=== PATIENT | female | born 1960 | race Caucasian/White ===

== ENCOUNTER 2018-08-26 11:28 | Inpatient (IN) | payer OTHER ==
[~2018-08-26] VITALS: Ht 157.5 cm; Wt 62.6 kg
[2018-08-26 11:29] VITALS: BP 112/82
--- NOTE | 2018-08-26 11:29 | NUR ---
PT TO BED 4. PLACED ON MONITOR, DRESSED IN GOWN.
--- NOTE | 2018-08-26 11:35 | NUR ---
EKG IN PROGRESS
--- NOTE | 2018-08-26 11:42 | NUR ---
PATIENT PRESENTS TO ED WITH C/O STERNAL CHEST PAIN SINCE YESTERDAY, DENIES SOB, N/V/D, DENIES MEDICAL HX. SKIN IS PINK/WARM/DRY; AAOX4 WITH EVEN AND STEADY GAIT; LUNGS CLEAR BL; HR EVEN AND REGULAR;PATIENT STATES PAIN OF 8/10 AT THIS TIME; VSS; PATIENT POSITIONED FOR COMFORT; HOB ELEVATED; BEDRAILS UP X2; BED DOWN. ER MD MADE AWARE OF PT STATUS.
--- NOTE | 2018-08-26 11:46 | NUR ---
Patient being evaluated by physician at bedside.
[2018-08-26 12:03] LABS: BASOPHILS # (AUTO) 0.1 K/uL (0.00-0.22); BASOPHILS % (AUTO) 0.7 % (0.0-2.0); EOSINOPHILS # (AUTO) 0.1 K/uL (0-0.4); EOSINOPHILS % (AUTO) 0.5 % (0.0-4.0); HEMATOCRIT 38.4 % (36-48); HEMOGLOBIN 12.8 g/dL (12.0-16.0); LYMPHOCYTES # (AUTO) 2.1 K/uL (2.5-16.5); LYMPHOCYTES % (AUTO) 18.1 % (20.5-51.1); MEAN CORPUSCULAR HEMOGLOBIN 29 pg (27-31); MEAN CORPUSCULAR HGB CONC 33 g/dL (33-37); MEAN CORPUSCULAR VOLUME 86.1 fL (80-94); MONOCYTES # (AUTO) 0.9 K/uL (0.8-1.0); MONOCYTES % (AUTO) 7.9 % (1.7-9.3); NEUTROPHILS # (AUTO) 8.5 K/uL (1.8-7.7); NEUTROPHILS % (AUTO) 72.8 % (42.2-75.2); PLATELET COUNT (AUTO) 311 K/uL (140-450); RED BLOOD CELL COUNT(AUTO) 4.45 MIL/uL (4.20-5.40); RED CELL DISTRIBUTION WIDTH 14.2 % (11.6-13.7); WHITE BLOOD COUNT (AUTO) 11.7 K/uL (4.8-10.8)
[2018-08-26 12:28] LABS: ANION GAP 15.5 (8-16); CARBON DIOXIDE 24.9 mmol/L (21-32); CREATININE 0.9 mg/dL (0.6-1.3); POTASSIUM 3.4 mmol/L (3.5-5.1)
--- NOTE | 2018-08-26 12:30 | NUR ---
PT DENIES CHEST PAIN AT THIS TIME, VSS, RESTING IN BED.
[2018-08-26 12:45] LABS: ALBUMIN 3.7 g/dL (3.4-5.0); TOTAL BILIRUBIN 0.5 mg/dL (0.0-1.0)
[2018-08-26] MEDS ORDERED: ASPIRIN 325 MG TAB PO ONE (12:55)
[2018-08-26] MEDS ORDERED: NITROGLYCERIN 0.4 MG TAB SL ONE (12:55)
[2018-08-26] MEDS ORDERED: HEPARIN PER PHARMACY MC PRN (13:00)
[2018-08-26] MEDS ORDERED: hePARIN / DEXT 5% PREMIX 250 ML IV SCH (13:00)
[2018-08-26] MEDS ORDERED: ONDANSETRON 4 MG/2 ML VIAL IVP PRN (13:05)
[2018-08-26] MEDS ORDERED: ACETAMINOPHEN 325 MG TAB PO PRN (13:05)
[2018-08-26] MEDS ORDERED: MORPHINE SULFATE 4 MG/ML SYR IVP PRN (13:05)
[2018-08-26] MEDS ORDERED: ALBUTEROL 0.083% 2.5 MG/3 ML NEBU IH PRN (13:05)
[2018-08-26] MEDS ORDERED: HYDROcodone/APAP 5/325 MG 1 TAB TAB PO PRN (13:05)
[2018-08-26] MEDS ORDERED: POTASSIUM CHLORIDE 10 MEQ TABER PO SCH (13:30)
[2018-08-26] MEDS ORDERED: ATORVASTATIN 20 MG TAB PO SCH (13:30)
[2018-08-26] MEDS ORDERED: NICOTINE TRANSD SYS 14 MG/24 HR PATCH TD SCH (13:30)
[2018-08-26 13:35] VITALS: BP 106/63
--- NOTE | 2018-08-26 13:35 | NUR ---
RECEIVED REPORT FROM ED NURSE. PT TRANSFERRED TO [facility] BED WITH STEADY GAIT. PT HAS NO C/O PAIN OR CHEST PAIN AT THIS TIME. AAOX4, COOPERATIVE. RESPIRATIONS EVEN AND UNLABORED ON RA. IV ON LT FA 22 GA ON SALINE LOCK, PATENT AND FLUSHING WITHOUT RESISTANCE. ACTIVE BOWEL SOUNDS, LBM 7/9. NO EDEMA NOTED TO EXTREMITIES. SKIN IS INTACT, WARM TO TOUCH. REVIEWED POC WITH PT, PT VERBALIZED UNDERSTANDING. WILL CONTINUE TO MONITOR.
[2018-08-26 13:38] LABS: PROTHROMBIN TIME 10.1 secs (10.8-13.4)
--- NOTE | 2018-08-26 13:42 | NUR ---
Patient will be admitted to care of dr barajas. Admited to tele. Will go to room 121-b. Belongings list completed. Report to radha head.
[2018-08-26] MEDS: hePARIN / DEXT 5% PREMIX 250 ML IV SCH (15:19)
--- NOTE | 2018-08-26 15:20 | NUR ---
GIVEN HEPARIN BOLUS AND STARTED HEPARIN DRIP PER ORDERS. EXPLAINED RISKS AND BENEFITS TO PT, PT VERBALIZED UNDERSTANDING. WILL CONTINUE TO MONITOR FOR S/S OF BLEEDING.
[2018-08-26 16:00] VITALS: BP 90/54
--- NOTE | 2018-08-26 18:40 | NUR ---
FRIEND VIKTORIYA AND DAUGHTER AT BEDSIDE. CLARIFIED POC AND ANSWERED QUESTIONS. PT IS IN NO S/S OF DISTRESS. WILL CONTINUE TO MONIBOR.
--- NOTE | 2018-08-26 19:20 | NUR ---
RECEIVED ENDORSEMENT FORM SONAL TORRES DAYSHIFT NURSE AT BEDSIDE FOR CONTINUITY OF CARE, PT IN STABLE CONDITION. PT HAS A 22 G ON LEFT FOREARM INTACT AND ASYMPTOMATIC. PT IS RUNNING HEPARIN GTT VIA IV ON LEFT F/A. OTHERWISE SKIN INTACT, AND PT IS AOX4 WITH NO C/O VOICED.
--- NOTE | 2018-08-26 19:20 | NUR ---
ENDORSED PT TO HORSER UP NURSE. PT HAS NO SIGNS OF DISTRESS AT THIS TIME.
[2018-08-26 20:00] VITALS: BP 113/58
[2018-08-26] MEDS: CARVEDILOL 6.25 MG TAB PO SCH (20:22)
--- NOTE | 2018-08-26 20:30 | NUR ---
PT IN BED V/S FOLLOWS T 97.1 P 81 R 18 B/P 113/58 02 97% ON ROOM AIR. LAB CALLED AND REPORTED A CRITICAL FOR TROPONIN LEVEL WHICH IS 0.185. MD NOT NOTIFIED BECAUSE TROPONIN LEVEL IS TRENDING DOWN. PT HAS NO C/O OF PAIN OR DISTRESS NOTED. HEPARIN GTT CONTINUE TO RUN ORDERED AT 700 UNITS.
--- NOTE | 2018-08-26 21:00 | NUR ---
PT GIVEN DUE COREG. NO C/O VOICED BY PT. BED LOW AND SIDE RAILS UP X2. PT HAS CALL BEAVERS IN REACH.
--- NOTE | 2018-08-26 22:00 | NUR ---
NEW APTT LEVEL IS 47.4 WHICH IS IN THERAPEUTIC RANGE, NEW APPT BLOOD DRAW ORDERED FOR 0315AM. PT SLEEPING IN BED, NO S/S OF PAIN OR DISTRESS NOTED.
[2018-08-27] VITALS: BP 113/64
--- NOTE | 2018-08-27 | NUR ---
PT IN BED SLEEPING BUT AROUSABLE TO NAME AND LIGHT TOUCH. V/S FOLLOWS T 97.0 P 76 R 18 B/P 113/64 02 98% ON ROOM AIR. NO C/O VOICED BY RESIDENT HEPARIN GTT RUNNING AT 700 UNITS ORDERED. IV SITE ON LEFT F/A INTACT AND ASYMPTOMATIC. BED LOW SIDE RAILS UP X2, NO C/O VOICED BY PT AND CALL BEAVERS IN REACH.
--- NOTE | 2018-08-27 02:00 | NUR ---
PT IN BED SLEEPING NO S/S OF PAIN OR DISTRESS NOTED.
[2018-08-27 03:22] LABS: BASOPHILS # (AUTO) 0.1 K/uL (0.00-0.22); EOSINOPHILS # (AUTO) 0.3 K/uL (0-0.4); HEMATOCRIT 37.5 % (36-48); HEMOGLOBIN 12.4 g/dL (12.0-16.0); LYMPHOCYTES # (AUTO) 3.1 K/uL (2.5-16.5); LYMPHOCYTES % (AUTO) 32.6 % (20.5-51.1); MEAN CORPUSCULAR HEMOGLOBIN 29 pg (27-31); MEAN CORPUSCULAR HGB CONC 33 g/dL (33-37); MEAN CORPUSCULAR VOLUME 87.3 fL (80-94); MONOCYTES # (AUTO) 0.7 K/uL (0.8-1.0); MONOCYTES % (AUTO) 7.6 % (1.7-9.3); NEUTROPHILS # (AUTO) 5.2 K/uL (1.8-7.7); NEUTROPHILS % (AUTO) 55.8 % (42.2-75.2); PLATELET COUNT (AUTO) 297 K/uL (140-450); WHITE BLOOD COUNT (AUTO) 9.3 K/uL (4.8-10.8)
[2018-08-27 04:00] VITALS: BP 131/75
[2018-08-27 04:00] LABS: ANION GAP 14.6 (8-16); CARBON DIOXIDE 23.4 mmol/L (21-32); CREATININE 0.8 mg/dL (0.6-1.3)
--- NOTE | 2018-08-27 04:00 | NUR ---
LAB DRAW CAME BACK APTT LEVEL IS 45.9 FOLLOWED PROTOCOL, GAVE PT 1700 BOLUS HEPARIN AND INCREASED RATE 100UNITS TO 800U PER HR. PT TROPONIN LEVEL CAME BACK STILL A CRITICAL LEVEL OF 0.131 BUT TRENDING DOWNWARD. PT C/O 5/10 CHEST HEAVINESS , GIVEN 1 TAB NORCO PO/PRN. WILL MONITOR FOR EFFECT.
[2018-08-27 04:07] LABS: PHOSPHORUS 3.8 mg/dL (2.5-4.9)
[2018-08-27 04:12] LABS: CHOL/HDL RATIO 5.1 (1-4.5)
[2018-08-27] MEDS: hePARIN / DEXT 5% PREMIX 250 ML IV SCH (04:42)
--- NOTE | 2018-08-27 07:25 | NUR ---
RECEIVED REPORT FROM FISH TECHNOLOGIST NURSE. PT SLEEPING IN BED, AROUSABLE TO NAME, AOX4. RESPIRATIONS EVEN AND UNLABORED ON RA. IV ON LT FA 22 GA RUNNING HEPARIN PER ORDER. BOWEL SOUNDS ACTIVE, LBM 7/10. SKIN IS INTACT, WARM TO TOUCH. NO EDEMA TO EXTREMITIES NOTED AT THIS TIME. REVIEWED POC WITH PT, PT VERBALIZED UNDERSTANDING. CALL LIGHT WITHIN REACH. WILL CONTINUE TO MONITOR.
--- NOTE | 2018-08-27 07:30 | NUR ---
REPORT GIVEN TO SONAL TORRES DAYSHIFT AT BEDSIDE FOR CONTINUITY OF CARE, PT IN STABLE CONDITION.
[2018-08-27 08:00] VITALS: BP 95/52
--- NOTE | 2018-08-27 08:16 | NUR ---
PATIENT HAS BEEN SCREENED AND CATEGORIZED MODERATE NUTRITION RISK. PATIENT WILL BE SEEN WITHIN 3-5 DAYS OF ADMISSION. 08/29/18ARINA KAT RD
[2018-08-27] MEDS ORDERED: ATORVASTATIN 20 MG TAB PO SCH (09:00)
[2018-08-27] MEDS ORDERED: ASPIRIN 325 MG TAB PO SCH (09:00)
[2018-08-27] MEDS ORDERED: NICOTINE TRANSD SYS 14 MG/24 HR PATCH TD SCH (09:00)
[2018-08-27] MEDS: CARVEDILOL 6.25 MG TAB PO SCH (09:00)
--- NOTE | 2018-08-27 09:45 | NUR ---
CARVEDILOL HELD AT THIS TIME. BP 88/55. WILL REASSESS AT A LATER TIME, AND WILL CONTINUE TO MONITOR FOR SIGNS OF BLEEDING.
--- NOTE | 2018-08-27 10:30 | NUR ---
PT NOTIFIED REGARDING PLAN TO TRANSFER TO [facility] FOR CARDIAC CATHETERIZATION. DR. JARAMILLO AT BEDSIDE. PT PLACED ON NPO EXCEPT MEDS. PT IS AGREEABLE AND VERBALIZED UNDERSTANDING.
[2018-08-27] MEDS ORDERED: NICO14TD30 TD (11:02)
[2018-08-27] MEDS ORDERED: ACET-9525 PO (11:02)
[2018-08-27] MEDS ORDERED: ATOR20TA40 PO (11:02)
[2018-08-27] MEDS ORDERED: ACET-1182 PO (11:02)
[2018-08-27] MEDS ORDERED: PRON IH (11:02)
[2018-08-27] MEDS ORDERED: MORP4SOL10 IVP (11:02)
[2018-08-27] MEDS ORDERED: ASPI-1205 PO (11:02)
[2018-08-27] MEDS ORDERED: ONDA2SOL45 IVP (11:02)
[2018-08-27] MEDS ORDERED: CARV6.252 PO (11:02)
--- NOTE | 2018-08-27 11:20 | NUR ---
CALLED [facility] DIRECT SPOKE WITH SAIRA REGARDING THE AUTHORIZATION. PER SAIRA AUTH # FOR TRANSPORT [id number] AND FOR [employer] AUTH # [id number] CALLED [employer] SPOKE WITH DIANE PAZ PROVIDE THE AUTH # , ARRANGED TRANSPORT WITH [facility] TEACHER TIME 1400 FOR [facility] . NOTIFIED SONAL RN # TO GIVE REPORT [phone].
[2018-08-27 12:00] VITALS: BP 113/56
--- NOTE | 2018-08-27 12:00 | NUR ---
NO C/O PAIN AT THIS TIME. RESPIRATIONS EVEN AND UNLABORED ON RA.
--- NOTE | 2018-08-27 13:13 | NUR ---
GIVEN REPORT TO [facility] NURSE [place] AT . REPORTED LABS AND LATEST MEDICATIONS RECEIVED. ALL QUESTIONS ANSWERED, NURSE VERBALIZED UNDERSTANDING OF PT CONDITION. PT IS IN STABLE CONDITION AT THIS TIME.
--- NOTE | 2018-08-27 14:30 | NUR ---
PT GIVEN DISCHARGE INSTRUCTIONS. AWARE THAT SHE WILL BE TRANSFERRED TO [facility] FOR CARDIAC CATH PROCEDURE. ALL PAPERWORK SIGNED, AND QUESTIONS ANSWERED. ALL BELONGINGS IN PT POSSESSION. TRANSFERRED OUT OF UNIT VIA GURNEY WITH EMR PERSONNEL ASSISTANCE. TELE MONITOR REMOVED. HEPARIN STOPPED, IV ON HEP LOCK. PATIENT IS IN STABLE CONDITION AT THIS TIME.
== END 2018-08-27 14:30 | disposition short-term general hospital (02) | DRG 190 ==
LOC: MED 11:28 → MTU 13:12
PROVIDERS: ADMIT Internal Medicine Pulmonary Disease; ATTEND Internal Medicine Pulmonary Disease
DX: I21.4 Non-ST elevation (NSTEMI) myocardial infarction (principal); E78.5 Hyperlipidemia, unspecified; E87.6 Hypokalemia; F17.210 Nicotine dependence, cigarettes, uncomplicated; Z79.899 Other long term (current) drug therapy; I20.8 Other forms of angina pectoris
CPT/HCPCS: 36415; 71045; 80048; 80053; 83036; 83735; 84100; 84484; 85025; 85610; 85730; 87081; 93005; 99285; J1644; Q0092

== ENCOUNTER 2019-11-27 16:12 | Emergency (ER) | payer OTHER ==
[~2019-11-27] VITALS: Ht 162.6 cm; Wt 67.6 kg
[~2019-11-27 16:12] MED LIST: ACET-1182 PO; ACET-9525 PO; ASPI-1205 PO; ATOR20TA40 PO; CARV6.252 PO; MORP4SOL10 IVP; NICO14TD30 TD; ONDA2SOL45 IVP; PRON IH
[2019-11-27 16:22] VITALS: BP 169/89
--- NOTE | 2019-11-27 16:49 | NUR ---
PATIENT PRESENTS TO ED WITH LEFT SIDED NECK PAIN X ABOUT 2 MONTHS, PAIN WORSENING AND ACCOMPANIED BY HEADACHE FOR THE PAST 2 DAYS. DENIES N/V/D; SKIN IS PINK/WARM/DRY; AAOX4 WITH EVEN AND STEADY GAIT; LUNGS CLEAR BL; HR EVEN AND REGULAR; PT DENIES ANY FEVER, CP, SOB, OR COUGH AT THIS TIME; PATIENT STATES PAIN OF 9/10 AT THIS TIME; VSS; PATIENT POSITIONED FOR COMFORT; HOB ELEVATED; BEDRAILS UP X1; BED DOWN. ER MD MADE AWARE OF PT STATUS.
--- NOTE | 2019-11-27 17:00 | NUR ---
PT IS BEING TAKEN TO XRAY VIA .
--- NOTE | 2019-11-27 17:15 | NUR ---
PT WAS TAKEN BACK FROM XRAY SCAN VIA WC. COVID SWAB OBTAINED AND SENT TO THE LAB.
[2019-11-27 18:40] VITALS: BP 145/85
--- NOTE | 2019-11-27 18:40 | NUR ---
Patient discharged with v/s stable. Written and verbal after care instructions given and explained. Patient alert, oriented and verbalized understanding of instructions. Ambulatory with steady gait. All questions addressed prior to discharge. ID band removed. Patient advised to follow up with PMD. Rx of Valium given. Patient educated on indication of medication including possible reaction and side effects. Opportunity to ask questions provided and answered.
== END 2019-11-27 18:40 | disposition home or self-care (01) ==
LOC: MED 16:12
DX: S13.9XXA Sprain of joints and ligaments of unspecified parts of neck, initial encounter (principal); E78.5 Hyperlipidemia, unspecified; F17.210 Nicotine dependence, cigarettes, uncomplicated; I10 Essential (primary) hypertension; I51.89 Other ill-defined heart diseases; Z20.828 Contact with and (suspected) exposure to other viral communicable diseases; Z79.899 Other long term (current) drug therapy; X58.XXXA Exposure to other specified factors, initial encounter; Y93.89 Activity, other specified; Y92.89 Other specified places as the place of occurrence of the external cause; Y99.8 Other external cause status
CPT/HCPCS: 72050; 99284; U0003

== ENCOUNTER 2020-03-05 12:29 | Emergency (ER) | payer OTHER ==
[~2020-03-05] VITALS: Ht 157.5 cm; Wt 66.2 kg
[2020-03-05 12:35] VITALS: BP 160/91
--- NOTE | 2020-03-05 12:37 | NUR ---
Patient in tent for covid precautions
--- NOTE | 2020-03-05 13:07 | NUR ---
59 Y/O FEMALE C/O COUGH + BODY ACHES X2 DAYS. DENIES ANY SOB. NO RESP DISTRESS NOTED AT THIS TIME. DENIES N/V. LUNG SOUNDS CLEAR TO BILAT LOBES. SKIN COOL/DRY/INTACT. PMH: CARDIAC STENT NO PMH
--- NOTE | 2020-03-05 13:38 | NUR ---
PT COVID SWABBED AND SENT TO LAB
[2020-03-05] MEDS ORDERED: ALBUTEROL SULFATE/IPRATROPIU 3 ML SOL IH ONE (13:45)
[2020-03-05 15:02] VITALS: BP 157/90
--- NOTE | 2020-03-05 15:02 | NUR ---
Patient discharged with v/s stable. Written and verbal after care instructions given and explained. Patient alert, oriented and verbalized understanding of instructions. Ambulatory with steady gait. All questions addressed prior to discharge. ID band removed. Patient advised to follow up with PMD. Rx of ALBUTEROL, AZITHROMYCIN, PREDNISONE, ATROVENT given. Patient educated on indication of medication including possible reaction and side effects. Opportunity to ask questions provided and answered.
== END 2020-03-05 15:02 | disposition home or self-care (01) ==
LOC: MED 12:29
DX: J02.9 Acute pharyngitis, unspecified (principal); I11.9 Hypertensive heart disease without heart failure; J44.9 Chronic obstructive pulmonary disease, unspecified; Z79.899 Other long term (current) drug therapy; Z20.828 Contact with and (suspected) exposure to other viral communicable diseases
CPT/HCPCS: 71045; 94640; 99284

== ENCOUNTER 2020-09-22 12:29 | Emergency (ER) | payer OTHER, SELFPAY ==
[~2020-09-22] VITALS: Ht 157.5 cm; Wt 64.9 kg
[2020-09-22 12:36] VITALS: BP 169/100
[2020-09-22] MEDS ORDERED: NITROGLYCERIN 0.4 MG TAB SL ONE (13:05)
[2020-09-22] MEDS ORDERED: ASPIRIN 325 MG TAB PO ONE (13:05)
--- NOTE | 2020-09-22 13:07 | NUR ---
PT AMBULATED TO BED 11
--- NOTE | 2020-09-22 13:12 | NUR ---
RAD AT BEDSIDE
--- NOTE | 2020-09-22 13:40 | NUR ---
20 G IV ESTABLISHED TO R AC. BLOOD SAMPLES COLLECTED VIA IV AND AND GIVEN TO CELLAR PACKER.
--- NOTE | 2020-09-22 13:45 | NUR ---
PT STATES SHE IS NO LONGER IN PAIN AFTER X3 NITRO TABLETS. DR ALEMAN MADE AWARE
[2020-09-22 14:11] LABS: BASOPHILS # (AUTO) 0.1 K/uL (0.00-0.22); BASOPHILS % (AUTO) 1.2 % (0.0-2.0); EOSINOPHILS # (AUTO) 0.2 K/uL (0-0.4); EOSINOPHILS % (AUTO) 2.3 % (0.0-4.0); HEMOGLOBIN 12.8 g/dL (12.0-16.0); LYMPHOCYTES # (AUTO) 2.9 K/uL (2.5-16.5); MEAN CORPUSCULAR HEMOGLOBIN 29 pg (27-31); MEAN CORPUSCULAR HGB CONC 34 g/dL (33-37); MEAN CORPUSCULAR VOLUME 86.9 fL (80-94); MONOCYTES # (AUTO) 0.8 K/uL (0.8-1.0); MONOCYTES % (AUTO) 7.2 % (1.7-9.3); NEUTROPHILS # (AUTO) 6.7 K/uL (1.8-7.7); NEUTROPHILS % (AUTO) 62.3 % (42.2-75.2); PLATELET COUNT (AUTO) 302 K/uL (140-450); RED BLOOD CELL COUNT(AUTO) 4.37 MIL/uL (4.20-5.40); RED CELL DISTRIBUTION WIDTH 13.8 % (11.6-13.7); WHITE BLOOD COUNT (AUTO) 10.7 K/uL (4.8-10.8)
[2020-09-22 14:21] LABS: ALBUMIN 3.7 g/dL (3.4-5.0); ANION GAP 12.7 (8-16); CARBON DIOXIDE 26.7 mmol/L (21-32); POTASSIUM 3.4 mmol/L (3.5-5.1); TOTAL BILIRUBIN 0.4 mg/dL (0.0-1.0)
--- NOTE | 2020-09-22 15:30 | NUR ---
PT RESTING IN BED WITH EVEN AND UNLABORED RESPIRATIONS. PT ON TRIM ATTACHER, VSS. WILL CONTINUE TO MONITOR
--- NOTE | 2020-09-22 16:00 | NUR ---
MALACHI ASH SAMPLE COLLECTED AND WALKED TO LAB
[2020-09-22] MEDS ORDERED: MAG SULF 2000 MG/WATER PREMIX 50 ML IV PRN (16:55)
[2020-09-22] MEDS ORDERED: ACETAMINOPHEN 325 MG TAB PO PRN (16:55)
[2020-09-22] MEDS ORDERED: MORPHINE SULFATE 4 MG/ML SYR IVP PRN (16:55)
[2020-09-22] MEDS ORDERED: KCL 20 MEQ/WATER INJ PREMIX 200 ML IV PRN (16:55)
[2020-09-22] MEDS ORDERED: MAGNESIUM OXIDE 400 MG TAB PO PRN (16:55)
[2020-09-22] MEDS ORDERED: HYDROcodone/APAP 5/325 MG 1 TAB TAB PO PRN (16:55)
[2020-09-22] MEDS ORDERED: POTASSIUM CHLORIDE 10 MEQ TABER PO PRN (16:55)
[2020-09-22] MEDS ORDERED: ONDANSETRON 4 MG/2 ML VIAL IVP PRN (16:55)
--- NOTE | 2020-09-22 17:30 | NUR ---
PT DENIES PAIN AT THIS TIME. PT LAYING IN BED WITH EVEN AND UNLABORED RESPIRATIONS. VSS. WILL CONTINUE TO MONITOR
[2020-09-22] MEDS ORDERED: ASPI-1822 PO (18:05)
[2020-09-22] MEDS ORDERED: ATOR40TA PO (18:05)
[2020-09-22] MEDS ORDERED: METO25TA PO (18:05)
[2020-09-22] MEDS ORDERED: LOSA100T1 PO (18:05)
--- NOTE | 2020-09-22 19:01 | NUR ---
PT GIVEN DINNER TRAY
--- NOTE | 2020-09-22 19:14 | NUR ---
Rceived report from BRIAN Michelle for continuity of care
--- NOTE | 2020-09-22 19:15 | NUR ---
REPORT GIVEN TO IVAN RN, TRANSFER OF CARE AT THIS TIME
--- NOTE | 2020-09-22 19:36 | NUR ---
Patient appears to be resting comfortably in bed-- Semi fowlers. Vital Signs within normal limits. Respirations even and unlabored. AAOx4. Safety measures in place, placed on the monitor. Will continue to monitor patient
--- NOTE | 2020-09-22 21:35 | NUR ---
Patient appears to be resting comfortably in bed-- low fowlers. Patient does not complain of Vital Signs within normal limits. Respirations even and unlabored. AAOx4. Provided patient a blanket and pillow. Safety measures in place, placed on the monitor. Will continue to monitor patient.
--- NOTE | 2020-09-23 00:58 | NUR ---
PATIENT AMBULATED TO THE BATHROOM
--- NOTE | 2020-09-23 02:22 | NUR ---
Patient appears to be resting comfortably in bed. Vital Signs within normal limits. Respirations even and unlabored. Safety measures in place. Will continue to monitor.
--- NOTE | 2020-09-23 05:23 | NUR ---
Patient appears to be resting comfortably in bed. Vital Signs within normal limits. Respirations even and unlabored. Safety measures in place. Will continue to monitor.
--- NOTE | 2020-09-23 06:42 | NUR ---
Patient appears to be resting comfortably in bed. Vital Signs within normal limits. Respirations even and unlabored. Safety measures in place. Will continue to monitor.
--- NOTE | 2020-09-23 07:19 | NUR ---
Pt report given to Marilyn TORRES. Transfer of care at this time.
[2020-09-23 07:39] LABS: BASOPHILS # (AUTO) 0.1 K/uL (0.00-0.22); BASOPHILS % (AUTO) 0.7 % (0.0-2.0); EOSINOPHILS # (AUTO) 0.3 K/uL (0-0.4); EOSINOPHILS % (AUTO) 4.2 % (0.0-4.0); HEMOGLOBIN 13.5 g/dL (12.0-16.0); LYMPHOCYTES # (AUTO) 1.9 K/uL (2.5-16.5); LYMPHOCYTES % (AUTO) 23.4 % (20.5-51.1); MEAN CORPUSCULAR HEMOGLOBIN 29 pg (27-31); MEAN CORPUSCULAR HGB CONC 33 g/dL (33-37); MEAN CORPUSCULAR VOLUME 88.3 fL (80-94); MONOCYTES # (AUTO) 0.6 K/uL (0.8-1.0); MONOCYTES % (AUTO) 7.5 % (1.7-9.3); NEUTROPHILS # (AUTO) 5.3 K/uL (1.8-7.7); NEUTROPHILS % (AUTO) 64.2 % (42.2-75.2); PLATELET COUNT (AUTO) 304 K/uL (140-450); RED BLOOD CELL COUNT(AUTO) 4.65 MIL/uL (4.20-5.40); RED CELL DISTRIBUTION WIDTH 13.9 % (11.6-13.7); WHITE BLOOD COUNT (AUTO) 8.3 K/uL (4.8-10.8)
[2020-09-23 07:53] LABS: PROTHROMBIN TIME 9.7 secs (10.8-13.4)
[2020-09-23 07:56] LABS: ALBUMIN 3.4 g/dL (3.4-5.0); ANION GAP 11.7 (8-16); CARBON DIOXIDE 25.9 mmol/L (21-32); CREATININE 0.9 mg/dL (0.6-1.3); POTASSIUM 3.6 mmol/L (3.5-5.1); TOTAL BILIRUBIN 0.5 mg/dL (0.0-1.0)
[2020-09-23 07:58] LABS: MAGNESIUM 2.3 mg/dL (1.8-2.4)
--- NOTE | 2020-09-23 08:23 | NUR ---
DR MCNEAL WAS NOTIFIED ABOUT BP 162/75 PULSE 75. VERBAL ORDER OF HYDRALIZINE 25MG PO Q 6 HRS FOR BP <160. NOT C/O OF CHEST PAIN AT THIS TIME.
[2020-09-23] MEDS ORDERED: hydrALAZINE 25 MG TAB PO SCH (12:00)
--- NOTE | 2020-09-23 14:05 | NUR ---
PT REQUESTED TO AMA AT THIS TIME. DR. MCNEAL MADE AWARE.
--- NOTE | 2020-09-23 14:12 | NUR ---
PT REQUESTING TO GO AMA.
--- NOTE | 2020-09-23 14:18 | NUR ---
Patient does not wish to proceed with medical care recommended by ELIZABET GARCIA. Patient given information related to possible complications, up to and including , which could occur as a result of leaving hospital at this time. Patient verbalizes understanding of risks involved leaving against medical advice. Patient has signed AMA form.
[2020-09-23 14:19] VITALS: BP 139/72
== END 2020-09-23 14:18 | disposition left against medical advice (07) ==
LOC: MED 12:29 → UNDOADMOB 17:03 → MTU 17:03 → MED 09-23 14:18
DX: R07.89 Other chest pain (principal); Z20.822 Contact with and (suspected) exposure to COVID-19; I10 Essential (primary) hypertension; J44.9 Chronic obstructive pulmonary disease, unspecified; E78.5 Hyperlipidemia, unspecified; I25.2 Old myocardial infarction; F17.210 Nicotine dependence, cigarettes, uncomplicated; Z71.6 Tobacco abuse counseling; Z79.899 Other long term (current) drug therapy; Z79.82 Long term (current) use of aspirin
CPT/HCPCS: 36415; 71045; 80053; 83036; 83690; 83735; 83880; 84484; 85025; 85379; 85610; 87081; 93005; 99285

== ENCOUNTER 2021-09-03 09:59 | Emergency (ER) | payer OTHER ==
[~2021-09-03] VITALS: Ht 157.5 cm; Wt 62.6 kg
[~2021-09-03 09:59] MED LIST changes: -ACET-1182 PO; -ACET-9525 PO; -ASPI-1205 PO; +ASPI-1822 PO; -ATOR20TA40 PO; +ATOR40TA PO; -CARV6.252 PO; +LOSA100T1 PO; +METO25TA PO; -MORP4SOL10 IVP; -NICO14TD30 TD; -ONDA2SOL45 IVP; -PRON IH
[2021-09-03 10:23] VITALS: BP 182/92
[2021-09-03] MEDS ORDERED: KETOROLAC 30 MG/ML VIAL IM ONE (10:40)
--- NOTE | 2021-09-03 10:45 | NUR ---
MIHIR AND FLU SWABS COLLECTED AND WALKED TO LAB.
--- NOTE | 2021-09-03 10:53 | NUR ---
61/F PRESENTS TO ED WITH C/O BODY ACHES AND HEADACHE SINCE YESTERDAY, REPORTS TAKING ADVIL AND NYQUIL LAST NIGHT WITH MINOR RELIEF. PATIENT DENIES SOB, COUGH OR FEVERS.
[2021-09-03] MEDS ORDERED: IBUP-2213 PO (11:11)
[2021-09-03] MEDS ORDERED: ACET-10509 PO (11:12)
[2021-09-03] MEDS ORDERED: ONDA-188 PO (11:12)
[2021-09-03 11:34] VITALS: BP 182/92
--- NOTE | 2021-09-03 11:34 | NUR ---
Patient discharged with v/s stable. Written and verbal after care instructions ABOUT VIRAL ILLNESS given and explained. Patient alert, oriented and verbalized understanding of instructions. Ambulatory with steady gait. All questions addressed prior to discharge. ID band removed. Patient advised to follow up with PMD. Rx of TYLENOL EXTRA STRENGTH, IBUPROFEN AND ZOFRAN given. Patient educated on indication of medication including possible reaction and side effects. Opportunity to ask questions provided and answered.
== END 2021-09-03 11:34 | disposition home or self-care (01) ==
LOC: MED 09:59
DX: U07.1 COVID-19 (principal); I25.2 Old myocardial infarction; J44.9 Chronic obstructive pulmonary disease, unspecified; I10 Essential (primary) hypertension
CPT/HCPCS: 71046; 87426; 87804; 96372; 99284; J1885